=== PATIENT | male | born 1955 | race Caucasian/White ===

== ENCOUNTER 2023-08-24 22:40 | Emergency (ER) | payer OTHER ==
[~2023-08-24] VITALS: Ht 172.7 cm; Wt 75.0 kg
[2023-08-24 23:31] VITALS: TEMP 98.4; O2SAT 99
[2023-08-25 02:00] VITALS: BP 136/76; PULSE 67; RESP 18
[2023-08-25] MEDS: KETOROLAC 15MG/ML VIAL IM ONE (02:00)
[2023-08-25] MEDS ORDERED: LIDO700A15 TP (02:02)
[2023-08-25] MEDS ORDERED: KETOROLAC 15MG/ML VIAL IM NR (02:30)
[2023-08-25 02:42] LABS: CLARITY URINE CLEAR (CLEAR); COLOR URINE YELLOW (YELLOW); GLUCOSE URINE NEGATIVE (NEGATIVE); KETONES URINE NEGATIVE (NEGATIVE); LEUKOCYTE ESTERASE URINE NEGATIVE (NEGATIVE); NITRITE URINE NEGATIVE (NEGATIVE); OCCULT BLOOD URINE TRACE (NEGATIVE); PH URINE 5.5 (4.5-8.0); PROTEIN URINE NEGATIVE (NEGATIVE); SPECIFIC GRAVITY URINE 1.025 (1.005-1.030); UROBILINOGEN URINE 0.2 E.U./dL (0.2-1.0)
[2023-08-25 03:57] LABS: BACTERIA URINE NONE SEEN; RBC URINE 0-2 /hpf (0-2); SQUAMOUS EPITHELIAL CELL URINE FEW /lpf (RARE/1+); WBC URINE 0-2 /hpf (0-2)
== END 2023-08-25 04:15 | disposition home or self-care (01) ==
LOC: ER 22:40
DX: M54.50 Low back pain, unspecified (principal); Z95.0 Presence of cardiac pacemaker
CPT/HCPCS: 99283; 81003; 96372; J1885